=== PATIENT | male | born 1985 | race African-American/Black ===

== ENCOUNTER 2020-04-07 22:30 | Inpatient (IN) | payer OTHER ==
[~2020-04-07] VITALS: Ht 170.2 cm; Wt 77.2 kg
--- NOTE | 2020-04-07 22:30 | NUR ---
PATIENT TO ROOM 14 VIA EMS STRETCHER. TRIAGE COMPLETED AT BEDSIDE.
[2020-04-07] MEDS ORDERED: PROTONIX20 M1 PO (22:42)
--- NOTE | 2020-04-07 23:19 | NUR ---
PATIENT AMBULATORY TO BATHROOM FOR URINE SAMPLE. ACCOMPANIED BY CORRECTION OFFICERS.
[2020-04-08 00:20] LABS: HEMATOCRIT 41.9 % (39.0-50.0); HEMOGLOBIN 13.6 g/dl (14.0-18.0); IMMATURE GRANULOCYTES 0.2 % (0.0-5.0); MEAN CELL VOLUME 93.7 fL CALC (80.0-100.0); MEAN CORPUSCULAR HGB 30.4 pG CALC (26.0-32.0); MEAN CORPUSCULAR HGB CONC 32.5 g/dL CAL (32.0-36.0); NEUT# 3.26 thou/uL (1.82-7.42); RED BLOOD COUNT 4.47 mill/uL (4.70-6.10); RED CELL DISTRI WIDTH 13.5 % (11.5-15.5)
[2020-04-08 00:22] LABS: URINE BILIRUBIN - DIPSTICK NEGATIVE (NEGATIVE); URINE BLOOD DIPSTICK NEGATIVE (NEGATIVE); URINE COLOR YELLOW; URINE GLUCOSE - DIPSTICK NEGATIVE (NEGATIVE); URINE KETONE NEGATIVE (NEGATIVE); URINE LEUK ESTERASE NEGATIVE (NEGATIVE); URINE NITRITE - DIPSTICK NEGATIVE (Negative); URINE PROTEIN - DIPSTICK NEGATIVE (NEG-TRACE); URINE SPECIFIC GRAVITY 1.015; URINE UROBILINOGEN - DIPSTICK 0.2 E.U./dL (0.2)
[2020-04-08 00:25] LABS: ALKALINE PHOSPHATASE 41 u/l (38-126); AMYLASE 78 u/l (30-110); ANION GAP 8 (6-22 (CALC)); BUN 5 mg/dL (9-20); BUN/CREATININE RATIO 6 (12-20 (CALC)); CARBON DIOXIDE 29 mmol/l (22-30); CHLORIDE 105 mmol/l (95-108); CREATININE 0.9 mg/dL (0.7-1.3); GFR > 60 ML/MIN (>=60 (CALC)); GFR FOR AFR.AMER. > 60 ML/MIN (>=60 (CALC)); LIPASE 65 u/l (23-300); POTASSIUM 3.9 mmol/l (3.5-5.1); SGOT/AST 17 u/l (17-59); SODIUM 139 mmol/l (137-146); TOTAL PROTEIN 6.8 g/dL (6.3-8.2)
--- NOTE | 2020-04-08 00:50 | NUR ---
PT COMPLETED CONTRAST. RESTING. HAS BEEN UP TO THE BR X 2
--- NOTE | 2020-04-08 01:17 | NUR ---
UP TO BR. EACH TIME PASSES SMALL AMT OF SHREDDY STOOL WITH SOME JAZZMINE BROWN COLOR
--- NOTE | 2020-04-08 02:02 | NUR ---
TO BR FIRST THEN TO CT.
--- NOTE | 2020-04-08 04:30 | NUR ---
REPORT TO , ICU (MED-SURG OVERFLOW)
--- NOTE | 2020-04-08 04:35 | NUR ---
TO FLOOR VIA W/C ESCORTED BY [facility] GUARDS.
[2020-04-08 04:44] VITALS: BP 135/83
--- NOTE | 2020-04-08 04:44 | NUR ---
35 yr old black male admitted as medsurg overflow to icu 6 per wheelchair from er accompanied by guards x2. air/contact precautions initiated. to bedside commode for loose brown bm then to bed. history obtained per pt & er record. oriented to room. fall precautions initiated.
--- NOTE | 2020-04-08 06:19 | NUR ---
seema @ [facility] notified of need for orders from 0330 to be verified.
--- NOTE | 2020-04-08 07:30 | NUR ---
REPORT RECEIVED FROM DELVIS MCKEON. PT GETTING UP OUT OF BED TO AMBULATE TO BATHROOM FOR BM. ALERT AND ORIENTED. VSS. CURRENTLY DENIES PAIN. RESPIRATIONS EVEN AND UNLABORED ON ROOM AIR. 2 GUARDS AT BEDSIDE. ON AIRBORNE/CONTACT PRECAUTIONS PENDING COVID SWAB. CALL LIGHT WITHIN REACH.
--- NOTE | 2020-04-08 07:52 | NUR ---
LAB AT BEDSIDE.
[2020-04-08 08:08] LABS: HEMATOCRIT 46.5 % (39.0-50.0); HEMOGLOBIN 14.6 g/dl (14.0-18.0); MEAN CELL VOLUME 95.7 fL CALC (80.0-100.0); MEAN CORPUSCULAR HGB CONC 31.4 g/dL CAL (32.0-36.0); RED BLOOD COUNT 4.86 mill/uL (4.70-6.10); RED CELL DISTRI WIDTH 13.4 % (11.5-15.5)
--- NOTE | 2020-04-08 08:15 | NUR ---
REGISTRATION ON UNIT; PT REBANDED WITH CORRECT . AM MEDICATIONS ADMINISTERED; 2 PERSON IDENTIFIER CONFIMRED.
--- NOTE | 2020-04-08 08:25 | NUR ---
DR. MEJIA AT BEDSIDE FOR EVAL. NEW ORDERS RECEIVED INCLUDING STOOL SPECIMEN. PT AWARE. ASSESSMENT COMPLETED. PT NOW C/O 11/18 LEFT SIDED ABDOMINAL PAIN. POC REVIEWED. PT ENCOURAGED TO VEBRALIZE CONCERNS. STATES UNDERSTANDING. CALL LIGHT WITHIN REACH.
--- NOTE | 2020-04-08 10:05 | NUR ---
STOOL SPECIMEN OBTAINED AND SENT TO LAB. PT RESTING SUPINE WITH NO REQUESTS OR CONCERNS. IV FLUIDS INFUSING WITHOUT DIFFICULTY; IV SITE APPEARS HEALTHY. CALL LIGHT WITHIN REACH.
[2020-04-08 10:43] LABS: C. DIFFICILE TOXIN A&B NEGATIVE (NEGATIVE)
[2020-04-08 12:00] VITALS: BP 136/75
--- NOTE | 2020-04-08 12:11 | NUR ---
VSS. GUARDS REMAIN AT BEDSIDE. PT PLEASANT AND COOPERATIVE. STOOL NEGATIVE FOR CIFF. SITTING UP IN BED EATING LUNCH. NO REQUESTS OR CONCERNS AT THIS TIME.
--- NOTE | 2020-04-08 16:45 | NUR ---
EMS SITE LEAKING; 3 NURSING ATTEMPTS FOR IV START; 22G PLACED TO RAC. MORPHINE ADMINITERED UPON IV START FOR 6/10 ABDOMINAL PAIN. PT MAKING VERY FREQUENT TRIPS TO BATHROOM FOR WATERY STOOL.
[2020-04-08 17:00] VITALS: BP 150/78
--- NOTE | 2020-04-08 17:00 | NUR ---
TRANSPORTED TO [facility] ROOM 284 VIA WHEELCHAIR IN STABLE CONDITION ACCOMPANIED BY 2 GUARDS. REMAINS ON AIRBORNE/CONTACT PRECAUTIONS. ORIENTED TO NEW ROOM AND CALL LIGHT SYSTEM. UPDATED REPORT GIVEN TO RAMIRO MCKEON AT BEDSIDE.
--- NOTE | 2020-04-08 17:00 | NUR ---
PATIENT TRANSFERED FROM ICU VIA WHEELCHAIR ESCORTED BY ADRIÁN RUBIO, AND TWO CORRECTIONS OFFICERS. PATIENT ALERT AND ORIENTED AT THIS TIME. PATIENT ORIENTED TO ROOM AND CALL LIGHT. SIDERAILS UP X 2. PATIENT STATED AT THIS TIME HIS PAIN LEVEL IS A 4 OUT OF A SCALE OF 0-10. PATIENT WAS PREVIOUSLY MEDICATED IN ICU FOR PAIN. VITAL SIGNS OBTAINED SEE INTERVENTIONS. PATIENT DOES HAVE R ANKLE SHACKLE ON THIS NURSE WAS ABLE TO SLIDE TWO FINGERS TO CHECK FOR TIGHTNESS AND CIRCULATION. PATIENT VERBALIZES THE UNDERSTANDING OF ROOM AND UNIT AND AT THIS TIME STATES NO OTHER NEEDS.
[2020-04-08 19:51] VITALS: BP 121/73
--- NOTE | 2020-04-08 21:14 | NUR ---
PT MEDICATED ORDERS PROVIDE. HE IS ASKING FOR PAIN MEDICATION, WILL PROVIDE FOLLOW-UP. DENIES NEED FOR OTHER LIQUIDS AT THIS TIME. PT PREVIOUSLY WAS IN THE SHOWER AND IS NOW RECONNECTED TO IVF RUNNING TO A 22 IN THE [facility] NS@125/SITE APPEARS HEALTHY. ASSESSMENT COMPLETED AT THIS TIME. ABD FIRM AND TENDER TO LRQ. PT SHACKLED TO BED AT LLE, CIRCULATION APPEARS INTACT AT THIS TIME. PT DENIES ANY OTHER NEEDS OTHER THAN PAIN MEDICATION.
--- NOTE | 2020-04-08 21:35 | NUR ---
PT MEDICATED FOR PAIN AND NAUSEA PER REQUEST AND ORDERS PROVIDE. GUARDS X2 AT BEDSIDE. PT INSTRUCTED TO CALL ANY NEEDS ARISE, CALL LIGHT IS AT BEDSIDE WITHIN PT REACH.
--- NOTE | 2020-04-09 01:00 | NUR ---
PT SLEEPING, BUT AWOKE TO MY ENTERING THE ROOM. NO S/O DISTRESS NOTED AT THIS TIME. GUARDS X1 AT BEDSIDE. PT INSTRUCTED TO CALL NEEDS ARISE, VERBALIZED UNDERSTANDING. LIGHTS ARE OFF, BUT TV IS ON.
[2020-04-09 04:38] VITALS: BP 130/74
--- NOTE | 2020-04-09 05:05 | NUR ---
PT MEDICATED ORDERS PROVIDE. PT WAS SLEEPING AND AWOKE TO MY VOICE. DENIES ANY NEEDS AT THIS TIME. GUARDS AT BEDSIDE X2.
[2020-04-09 05:54] LABS: HEMATOCRIT 41.7 % (39.0-50.0); HEMOGLOBIN 13.2 g/dl (14.0-18.0); IMMATURE GRANULOCYTES 0.3 % (0.0-5.0); MEAN CELL VOLUME 95.6 fL CALC (80.0-100.0); MEAN CORPUSCULAR HGB 30.3 pG CALC (26.0-32.0); MEAN CORPUSCULAR HGB CONC 31.7 g/dL CAL (32.0-36.0); NEUT# 7.66 thou/uL (1.82-7.42); RED BLOOD COUNT 4.36 mill/uL (4.70-6.10); RED CELL DISTRI WIDTH 13.6 % (11.5-15.5)
[2020-04-09 05:59] LABS: ALKALINE PHOSPHATASE 42 u/l (38-126); ANION GAP 11 (6-22 (CALC)); BILIRUBIN, TOTAL 0.7 mg/dL (0.0-1.4); BUN 9 mg/dL (9-20); BUN/CREATININE RATIO 12 (12-20 (CALC)); CARBON DIOXIDE 28 mmol/l (22-30); CHLORIDE 107 mmol/l (95-108); CREATININE 0.8 mg/dL (0.7-1.3); GFR > 60 ML/MIN (>=60 (CALC)); GFR FOR AFR.AMER. > 60 ML/MIN (>=60 (CALC)); SGOT/AST 18 u/l (17-59); SODIUM 141 mmol/l (137-146); TOTAL PROTEIN 6.7 g/dL (6.3-8.2)
[2020-04-09 06:07] LABS: POTASSIUM 4.7 mmol/l (3.5-5.1)
[2020-04-09 07:44] VITALS: BP 136/82
--- NOTE | 2020-04-09 07:44 | NUR ---
RECEIEVED REPORT FROM RAMIRO TINSLEY. PT RESTING IN SEMI FOWLERS POSITION UPON ENTERING ROOM. INTRODUCED SELF TO PT AND DISCUSSED POC. PT IS A/OX3.PT IS FROM [facility], GUARDS X2 AT BEDSIDE. ASSESSMENT AND VITALS COMPLETED. BP 136/82, HR 65, O2 98% ON ROOM AIR. RESPIRATIONS ARE EVEN AND UNLABORED WITH NO SIGNS OF DISTRESS NOTED. LUNG SOUNDS ARE DIMINISHED. PT DENIES ANY SOB. HEART RHYTHM IS NORMAL. BOWEL SOUNDS ARE ACTIVE IN ALL QUADRANTS, LAST REPORETD BM 04/09/2020. RADIAL AND PEDAL PULSES AR STRONG WITH NORMAL CAPILLARY REFILL. #22 IN RAC RUNNING WITH IVF PER ORDER, SITE APPEARS HEALTHY AND PATENT.LEFT ANKLE SHACKLED TO BED. SKIN IS WARM AND DRY WITH NO BREAKDOWN PRESENT. PT COMPLAINS OF 6/10 PAIN IN ABD. PT TO BE MEDICATED PER EMAR. PT DENIES ANY OTHER NEEDS AT THIS TIME. ALL SAFETY AND ISOLATION PRECAUTIONS ARE IN PLACE WITH CALL LIGHT IN REACH. WILL CONTINUE.
[2020-04-09] MEDS ORDERED: PREDNISONE10 MG PO (10:28)
--- NOTE | 2020-04-09 12:38 | NUR ---
PT EDUCATED ON DISCHARGE INSTRUCTIONS AND NEW MEDICATION PREDISONE. PT VERBAILZED UNDERSTANDING. IV REMOEVED WITH CATHATER STILL INTACT. PT TOLERATED WELL. AWAITING FOR TRANSPORTATION BACK TO FACILITY. ALL SAFETY AND ISOLATION PRECAUTIONS ARE IN PLACE WILL CONTINUE TO MONITOR
--- NOTE | 2020-04-09 13:05 | NUR ---
Discharge instructions given. Patient verbalizes understanding of same. [facility] All belongings sent with pt. PT DISCHARGED BACK TO [facility] ACCOMPAINED BY GUARDS X2 IN STABLE CONDITION. PT LEFT WITH ALL DISCHARGE INSTRUCTIONS AND BELONGINGS.
--- NOTE | 2020-04-09 13:14 | NUR ---
REPORT CALLED TO TIMMY FROM [facility]
== END 2020-04-09 13:01 | DRG 387 ==
LOC: ED 22:30 → ED-I 04-08 02:50 → ED 04-08 03:30 → ICU 04-08 03:31 → EDBD 04-08 03:31 → ICU 04-08 14:58 → MS2 04-08 16:56
PROVIDERS: Emergency Medicine; Nurse Practitioner Family; ADMIT Internal Medicine; ATTEND Internal Medicine
DX: K51.911 Ulcerative colitis, unspecified with rectal bleeding (principal); E86.0 Dehydration; T47.96XA Underdosing of unspecified agents primarily affecting the gastrointestinal system, initial encounter; Z91.138 Patient's unintentional underdosing of medication regimen for other reason; Y92.149 Unspecified place in prison as the place of occurrence of the external cause; Z20.828 Contact with and (suspected) exposure to other viral communicable diseases
CPT/HCPCS: Q9967; S0164